=== PATIENT | male | born 1995 | race Two or more races ===

== ENCOUNTER 2018-11-27 14:32 | Emergency (ER) | payer OTHER ==
[~2018-11-27] VITALS: Ht 180.3 cm; Wt 59.4 kg
--- NOTE | 2018-11-27 15:30 | NUR ---
Patient discharged to home in stable conditon. Written and verbal after care instructions given. Patient verbalizes understanding of instructions.
== END 2018-11-27 15:31 | disposition home or self-care (01) ==
LOC: ER 14:32
DX: R21 Rash and other nonspecific skin eruption (principal); L29.9 Pruritus, unspecified; J40 Bronchitis, not specified as acute or chronic; M72.2 Plantar fascial fibromatosis; F17.290 Nicotine dependence, other tobacco product, uncomplicated; J45.909 Unspecified asthma, uncomplicated
CPT/HCPCS: A4663